=== PATIENT | male | born 1955 | race Caucasian/White ===

== ENCOUNTER 2017-06-01 10:30 | Emergency (ER) | payer OTHER ==
[~2017-06-01] VITALS: Ht 165.1 cm; Wt 81.8 kg
[~2017-06-01 10:30] MED LIST: ASPIRIN 32325 MG/TAB PO; ATORVASTATIN CA20 MG PO; CEPHALEXIN500 M2 PO; GLUCOSAMINE PO; LOSARTAN POTASS50 MG PO; NITROGLYCERIN0.4 M1 SL; NORCO 325 MG-51 TAB PO; NORVASC 10MG10 MG PO; ZYLOPRIM 100MG100 MG PO
[2017-06-01] MEDS ORDERED: FUROSEMIDE20 MG PO (10:44)
[2017-06-01] MEDS ORDERED: BACTRIM DS 8001 TAB PO (10:44)
[2017-06-01] MEDS ORDERED: METOPROLOL SUC100 M1 PO (10:44)
[2017-06-01] MEDS ORDERED: APRESOLINE 25MG25 MG PO (10:44)
[2017-06-01] MEDS ORDERED: FENOFIBRATE145 MG PO (10:44)
[2017-06-01] MEDS ORDERED: AMLODIPINE BESY10 MG PO (10:44)
[2017-06-01] MEDS ORDERED: CLOPIDOGREL75 M1 PO (10:44)
[2017-06-01] MEDS ORDERED: ATORVASTATIN CA80 MG PO (10:45)
[2017-06-01 11:20] LABS: BASO # 0.1 (0.02-0.10); EOS # 0.3 (0.04-0.40); EOS % 3.3 % (0.0-4.0); HEMATOCRIT 47.2 % (42.0-52.0); HEMOGLOBIN 15.9 g/dL (13.5-18.0); LYMPH# 1.5 (1.50-4.00); MEAN CELL VOLUME 96 fl (78-100); MEAN CORPUSCULAR HEMOGLOBIN 32 pg (27-31); MEAN CORPUSCULAR HGB CONC 34 g/dL (33-37); MEAN PLATELET VOLUME 11.3 fl (7.4-10.4); MONO # 0.7 (0.20-0.80); NEU # 5.1 (1.40-6.50); PLATELET COUNT 260 K/mm3 (130-400); RED BLOOD COUNT 4.92 M/mm3 (4.20-5.60); RED CELL DISTRIBUTION WIDTH 12.1 % (11.5-14.5); WHITE BLOOD COUNT 7.6 K/mm3 (4.8-10.8)
[2017-06-01 11:34] LABS: ALBUMIN 4.1 g/dL (3.5-5.0); ALT/SGPT 38 U/L (21-72); AST-SGOT 40 U/L (17-59); BUN/CREATININE RATIO 19.5 (6.0-26.0); CALCIUM 9.8 mg/dL (8.4-10.2); CARBON DIOXIDE 25 mmol/L (22-30); GLUCOSE 105 mg/dL (75-110); POTASSIUM 5.1 mmol/L (3.6-5.0); SODIUM 142 mmol/L (137-145); TOTAL BILIRUBIN 0.7 mg/dL (0.2-1.3); TOTAL PROTEIN 7.5 g/dL (6.3-8.2)
[2017-06-01 11:46] LABS: ALCOHOL IN-HOUSE < 10 mg/dL
[2017-06-01 11:56] LABS: URINE APPEARANCE CLEAR; URINE COLOR YELLOW; URINE PROTEIN(semi-quant) TRACE mg/dL (NEGATIVE)
[2017-06-01 11:57] LABS: URINE BILIRUBIN NEGATIVE (NEGATIVE); URINE BLOOD NEGATIVE (NEGATIVE); URINE GLUCOSE NEGATIVE (NEGATIVE); URINE KETONE NEGATIVE (NEGATIVE); URINE NITRATE NEGATIVE (NEGATIVE); URINE UROBILINOGEN NORMAL (NORMAL)
[2017-06-01 12:00] LABS: URINE LEUKOCYTE ESTERASE TRACE (NEGATIVE)
[2017-06-01 12:48] VITALS: BP 114/70
== END 2017-06-01 12:36 | disposition home or self-care (01) ==
LOC: ED 10:30
PROVIDERS: Physician Assistant
DX: R20.0 Anesthesia of skin (principal); E87.5 Hyperkalemia; B35.3 Tinea pedis; I25.10 Atherosclerotic heart disease of native coronary artery without angina pectoris; Z95.5 Presence of coronary angioplasty implant and graft; Z87.891 Personal history of nicotine dependence; Z95.0 Presence of cardiac pacemaker; R73.03 Prediabetes; Z79.02 Long term (current) use of antithrombotics/antiplatelets

== ENCOUNTER → 2018-07-22 | Day surgery (SDC) | payer OTHER ==
[~2018-07-22] MED LIST changes: +AMLODIPINE BESY10 MG PO; +APRESOLINE 25MG25 MG PO; +ATORVASTATIN CA80 MG PO; +BACTRIM DS 8001 TAB PO; +CLOPIDOGREL75 M1 PO; +FENOFIBRATE145 MG PO; +FUROSEMIDE20 MG PO; +METOPROLOL SUC100 M1 PO
== END ==
LOC: MSO 07:08
DX: Z12.11 Encounter for screening for malignant neoplasm of colon (principal); C18.7 Malignant neoplasm of sigmoid colon; D12.3 Benign neoplasm of transverse colon; Z80.0 Family history of malignant neoplasm of digestive organs; I25.10 Atherosclerotic heart disease of native coronary artery without angina pectoris; Z95.5 Presence of coronary angioplasty implant and graft; I10 Essential (primary) hypertension; Z95.0 Presence of cardiac pacemaker; Z79.899 Other long term (current) drug therapy; Z88.2 Allergy status to sulfonamides; Z88.8 Allergy status to other drugs, medicaments and biological substances
CPT/HCPCS: 00811; J2704; J3010; J7120

== ENCOUNTER → 2019-03-24 | Day surgery (SDC) | payer OTHER | LOC: MSO 07:10 | DX: Z86.010 Personal history of colon polyps (principal); I10 Essential (primary) hypertension; I47.1 Supraventricular tachycardia; E78.5 Hyperlipidemia, unspecified; I25.10 Atherosclerotic heart disease of native coronary artery without angina pectoris; Z80.0 Family history of malignant neoplasm of digestive organs; Z98.61 Coronary angioplasty status; Z95.0 Presence of cardiac pacemaker | CPT/HCPCS: 00812; J2704; J7120 ==